=== PATIENT | female | born 1950 | race Caucasian/White ===

== ENCOUNTER → 2018-06-07 | Outpatient (CLI) | payer MEDICARE, OTHER ==
[~2018-06-07] MED LIST: ATORVASTATIN CA40 MG PO; FEMARA2.5 MG PO; HYDROCHLOROTHIA25 M2 PO; LOSARTAN POTAS100 MG PO; METFORMIN HCL500 MG PO; NEURONTIN300 MG PO; UNICOMPLEX M TA1 TA1 PO; VENLAFAXIN75 MG/1 T2 PO; VITAMIN D32000 UNIT PO
== END ==
LOC: M.RAD 09:27
DX: N63.10 Unspecified lump in the right breast, unspecified quadrant (principal); Z85.3 Personal history of malignant neoplasm of breast; Z78.0 Asymptomatic menopausal state

== ENCOUNTER → 2018-06-09 | Outpatient (CLI) | payer MEDICARE, OTHER | LOC: M.RAD 14:30 | DX: M85.89 Other specified disorders of bone density and structure, multiple sites (principal); Z78.0 Asymptomatic menopausal state ==

== ENCOUNTER → 2019-05-23 | Outpatient (CLI) | payer MEDICARE, OTHER | LOC: M.RAD 06-22 16:24 | DX: N63.12 Unspecified lump in the right breast, upper inner quadrant (principal); Z85.3 Personal history of malignant neoplasm of breast; Z90.12 Acquired absence of left breast and nipple ==

== ENCOUNTER → 2020-06-12 | Outpatient (CLI) | payer OTHER | LOC: M.RAD 10:00 | PROVIDERS: ATTEND Internal Medicine Hematology & Oncology | DX: Z12.31 Encounter for screening mammogram for malignant neoplasm of breast (principal) ==